=== PATIENT | male | born 1995 | race African-American/Black ===

== ENCOUNTER 2017-01-27 13:36 | Emergency (ER) | payer OTHER ==
[2017-01-27 14:43] VITALS: BP 131/86
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
== END 2017-01-27 15:32 | disposition home or self-care (01) ==
LOC: UCCORT 13:36
DX: N52.9 Male erectile dysfunction, unspecified (principal); F12.90 Cannabis use, unspecified, uncomplicated
CPT/HCPCS: 81003; 87491; 87591; 99201; G0463

== ENCOUNTER 2019-10-08 07:54 | Emergency (ER) | payer OTHER ==
[2019-10-08 08:42] VITALS: BP 127/74
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
== END 2019-10-08 09:09 | disposition home or self-care (01) ==
LOC: UCCORT 07:54
DX: S06.0X9A Concussion with loss of consciousness of unspecified duration, initial encounter (principal); W22.01XA Walked into wall, initial encounter; Y92.89 Other specified places as the place of occurrence of the external cause; Y99.0 Civilian activity done for income or pay
CPT/HCPCS: 99211; G0463